=== PATIENT | female | born 1975 | race Asian ===

== ENCOUNTER 2021-01-18 16:28 | Emergency (ER) | payer OTHER ==
[2021-01-18 18:35] LABS: BASOPHIL 0.5 % (0-2); EOSINOPHIL 1.2 % (0-5); HCT 42.5 % (37.0-47.0); HGB 13.6 g/dl (12.5-16.0); LYMPHOCYTE 19.3 % (15-48); MCH 28.6 pg (25.0-31.0); MCV 89.5 fL (78.0-100.0); MONOCYTE 7.8 % (0-12); MPV 10.8 fL (6.0-9.5); NEUTROPHIL 70.9 % (41-80); NRBC 0; PLT 276 K/uL (150-400); RBC 4.75 M/uL (4.20-5.40); RDW 13.9 % (11.5-14.0); WBC 7.8 K/uL (4.0-10.5)
[2021-01-18 18:59] LABS: BILIRUBIN - TOTAL 0.4 mg/dL (0.2-1.0); BUN/CREAT RATIO (CALC) 17.1 RATIO; CREATININE 0.7 mg/dL (0.51-0.95); GLOBULIN (CALCULATION) 3.6 g/dL; POTASSIUM 4.1 mmol/L (3.5-5.1); TOTAL PROTEIN 7.6 g/dL (6.4-8.2)
== END 2021-01-18 19:14 | disposition home or self-care (01) ==
LOC: FER 16:28
PROVIDERS: Internal Medicine
DX: F41.9 Anxiety disorder, unspecified (principal); E11.9 Type 2 diabetes mellitus without complications; I10 Essential (primary) hypertension; Z88.0 Allergy status to penicillin; Z88.2 Allergy status to sulfonamides
CPT/HCPCS: 36415; 71045; 80053; 84443; 84484; 85025; 93005